=== PATIENT | male | born 1975 | race Caucasian/White ===

== ENCOUNTER 2017-12-03 10:30 | Emergency (ER) | payer OTHER ==
[~2017-12-03] VITALS: Ht 182.9 cm; Wt 86.2 kg
--- NOTE | ~2017-12-03 | EKG ---
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
[2017-12-03] MEDS ORDERED: NORCO 7.5-3251 EACH PO (10:42)
[2017-12-03] MEDS ORDERED: IBUPROFEN 800800 M1 PO (10:43)
[2017-12-03 10:57] LABS: ABSOLUTE NEUTROPHILS 1.9 thou/uL (1.4-8.2); BASOPHILS 0.7 % (0.0-2.0); HEMATOCRIT 46.2 % (42.0-52.0); HEMOGLOBIN 16.2 gm/dL (14.0-18.0); LYMPHOCYTES 44.7 % (24.0-44.0); MCH 32.3 pg (26.0-34.0); MCHC 35.2 g/dL (28.0-37.0); MCV 91.7 fL (80.0-100.0); PLATELET COUNT 202 thou/uL (150-400); POLYS 42.6 % (36.0-66.0); RBC 5.03 mil/uL (4.50-6.00); RDW 12.6 % (10.5-14.5); WBC 4.5 thou/uL (4.0-11.0)
[2017-12-03 11:02] LABS: ANION GAP 6 mmol/L (7-16); BUN 14 mg/dL (7-18); CALCIUM 10.1 mg/dL (8.5-10.1); CHLORIDE 103 mmol/L (98-107); CO2 30 mmol/L (21-32); CREATININE 1.2 mg/dL (0.7-1.3); GLUCOSE 106 mg/dL (74-106); POTASSIUM 4.2 mmol/L (3.5-5.1); SODIUM 139 mmol/L (136-145)
[2017-12-03 11:10] LABS: ALBUMIN 4.4 g/dL (3.4-5.0); SGOT 24 U/L (15-37); SGPT 54 U/L (30-65); TOTAL BILIRUBIN 0.5 mg/dL (<0.1-1.0); TOTAL PROTEIN 8.2 g/dL (6.4-8.2); TROPONIN-I <0.06 ng/mL (<0.06)
[2017-12-03] MEDS ORDERED: XANAX 1 MG TABLE1 MG PO (11:34)
[2017-12-03 12:14] VITALS: BP 145/109
== END 2017-12-03 12:05 | disposition home or self-care (01) ==
LOC: ER 10:30
PROVIDERS: Emergency Medicine
DX: F41.9 Anxiety disorder, unspecified (principal); R06.02 Shortness of breath; Z87.891 Personal history of nicotine dependence; Z88.6 Allergy status to analgesic agent

== ENCOUNTER → 2018-09-07 | Outpatient (CLI) | payer OTHER ==
[~2018-09-07] MED LIST: IBUPROFEN 800800 M1 PO; NORCO 7.5-3251 EACH PO; XANAX 1 MG TABLE1 MG PO
== END ==
LOC: ULTRA 07:24
DX: G45.9 Transient cerebral ischemic attack, unspecified (principal)

== ENCOUNTER 2019-12-22 09:03 | Emergency (ER) | payer OTHER ==
[~2019-12-22] VITALS: Ht 182.9 cm; Wt 86.2 kg
[2019-12-22 09:06] VITALS: BP 143/93
== END 2019-12-22 10:30 | disposition left against medical advice (07) ==
LOC: ER 09:03
DX: R05 Cough (principal); R06.02 Shortness of breath; R51.9 Headache, unspecified; R09.81 Nasal congestion; R53.83 Other fatigue; Z20.828 Contact with and (suspected) exposure to other viral communicable diseases